=== PATIENT | female | born 1995 | race Two or more races ===

== ENCOUNTER 2025-02-09 12:21 | Observation (INO) | payer MEDICAID, SELFPAY ==
--- NOTE | 2025-02-04 13:10 | ESHP_ITS ---
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 It is getting bigger. The patient had that drained before elsewhere and it has filled up again. PAST SURGICAL HISTORY: Two C-sections. SOCIAL HISTORY: She has two children. ALLERGIES: NONE KNOWN. PAST MEDICAL HISTORY: No history of diabetes mellitus. No history of hypertension. PHYSICAL EXAMINATION: HEENT: Normal. NECK: Supple. LUNGS: Clear. CARDIOVASCULAR: Heart sounds are normal. ABDOMEN: Soft without any organomegaly. No guarding. No rigidity. EXTREMITIES: Normal. GENITOURINARY: Pelvic examination revealed large swelling over the urethra, which is urethral diverticulum 2-3 cm in size. Bladder itself, there are no stones or tumors. PLAN: Excision of the urethral diverticulum and cystoscopy. Planned procedure risks and complications have been discussed with the patient. The patient has understood them and agreed to proceed. DT: 11:59:15 TT: 13:09:00 Ref: [id number] - TID: [id number]
[2025-02-08 06:45] VITALS: BMI 35.7
[2025-02-08 07:16] LABS: Collection Type, Urine Clean Catch
[2025-02-08 07:34] LABS: Basophils # (Auto) 0.1 Thou/mm3 (0.0-0.2); Basophils % (Auto) 1 % (0-2.5); Eosinophils # (Auto) 0.1 Thou/mm3 (0.0-0.5); Eosinophils % (Auto) 1 % (0-10); Hematocrit 35.3 % (36.0-46.0); Hemoglobin 11.6 g/dL (12.0-16.0); Immature Granulocytes Auto 0.02 Thou/mm3 (0.00-0.00); Lymphocytes # (Auto) 3.6 Thou/mm3 (1.0-4.8); Lymphocytes % (Auto) 36 % (10-50); Mean Corpuscular HGB Conc 32.9 g/dl (31.0-37.0); Mean Corpuscular Hemoglobin 25.3 pg (25.0-35.0); Mean Corpuscular Volume 77 fL (80-100); Monocytes # (Auto) 0.6 Thou/mm3 (0.0-0.8); Monocytes % (Auto) 6 % (0-12); Neutrophils # (Auto) 5.6 Thou/mm3 (1.8-7.7); Neutrophils % (Auto) 57 % (37-80); Nucleated Red Blood Cell # 0.00 Thou/mm3 (0.00-0.00); Nucleated Red Blood Cell % 0 /100 WBC (0); Platelet Count 376 Thou/mm3 (140-440); RDW Standard Deviation 41.9 fL (36.4-46.3); Red Blood Count 4.58 Miln/mm3 (4.00-5.20); White Blood Count 10.0 Thou/mm3 (3.6-11.0)
[2025-02-08 07:47] LABS: Anion Gap 8 (7-16); BUN/Creatinine Ratio 24 Ratio (12-20); Blood Urea Nitrogen 12 mg/dL (9-23); Calcium 8.7 mg/dL (8.3-10.6); Carbon Dioxide 25.3 mMol/L (20.0-31.0); Chloride 107 mMol/L (98-107); Creatinine (Component) 0.5 mg/dL (0.6-1.3); Estimated Creatinine Clearance 166.6 mL/min (>60); Glucose 101 mg/dL (74-106); Osmolality,Calculated 279 (275-295); Potassium 3.8 mMol/L (3.4-5.1); Sodium 140 mMol/L (136-145); eGFR > 60 See Note
[2025-02-08 08:14] LABS: Bilirubin,Urine Negative (Negative); Blood,Urine Trace (Negative); Clarity,Urine Clear (Clear/Hazy); Color,Urine Lt-Yellow (Lt Yel-Yel); Glucose, Urine Negative (Negative); Ketones,Urine Negative (Negative); Leukocyte Esterase,Urine Positive (Negative); Nitrite,Urine Negative (Negative); PH,Urine 6.0 (5.0-7.0); Protein,Urine Trace (Neg - Trace); RBC,Urine 4 /hpf (0-3); Specific Gravity,Urine 1.033 (1.001-1.035); Squamous Epithelial Cell,Urine 4 /hpf (0-5); Urobilinogen,Urine Negative mg/dL (0.0-1.0); WBC,Urine 3 /hpf (0-5)
[2025-02-08 08:30] LABS: HCG Qualitative,Urine Negative
[2025-02-08 08:32] LABS: Sperm,Urine Present
[2025-02-09] VITALS (10 sets, daily range): BP systolic 104–136; BP diastolic 57–94; PULSE 55–89; RESP 12–99; TEMP 36.1–36.7; O2SAT 95–100; BMI 35.3; BMI 36.5
--- NOTE | 2025-02-09 11:53 | SUR.PHASEI ---
1150 patient arrived to recovery resting comfortably in bed, on oxygen 6L via oxy mask, breathing unlabored, vital signs stable, denies pain, dressing intact to vaginal area; peripad, vaginal packing in place; kerlix roll soaked in betadine, no bleeding noted, denies nausea, urinary catheter 16F in place with leg secure; draining to gravity, report received from Aby MICHEL and [place] MOLINA
--- NOTE | 2025-02-09 12:53 | SUR.PHASEII ---
1249 Report given to Sasha MICHEL, patient meets discharge criteria from recovery, resting comfortably in bed, arouses with verbal prompting, breathing unlabored, vital signs stable, denies pain, dressing intact; no bleeding noted, urinary catheter in place; draining to gravity, denies nausea 1253 Patient transported via bed to room 370 without incident, Sasha MICHEL and CONSTRUCTION EQUIPMENT [employer]CH[employer]IC promptly in patients room, patient comfortably in bed with call light in reach when this health technical writer left patients room
[2025-02-09] MEDS: DEXTROSE 5%-LACTATED RINGERS 1,000 ML 100 ML IV (13:40)
[2025-02-09] MEDS: HYDROcodone/APAP 5/325 TABLET 1 TAB PO (15:34)
--- NOTE | 2025-02-09 18:41 | ESOP_ITS ---
RE: JOSE ESQUIVEL : 1995 DATE OF OPERATION: 02/09/2025 PREOPERATIVE DIAGNOSIS: Large urethral diverticulum. POSTOPERATIVE DIAGNOSIS: Large urethral diverticulum. PROCEDURE PERFORMED: Excision of urethral diverticulum with cystourethroscopy. ANESTHESIA: General by [place]. INDICATION: The patient is a 29-year-old female, who was referred to co with history of large urethral diverticulum. The patient has large swelling in front of her urethra. This is about 3-4 cm in size. The patient had aspiration of this swelling done in [place], but it has recurred. She was sent to co. She is now scheduled to have excision of urethral diverticulum with cystoscopy. Planned procedure, risks, and complications have been discussed with patient. The patient understood them and agreed to proceed. DESCRIPTION OF PROCEDURE: After the patient was brought to the operating table under adequate general anesthesia in dorsal lithotomy position, parts were prepped and draped in the usual fashion. A 16-Syriac Moreira catheter was then inserted into the bladder and was left indwelling. Anterior vaginal wall incision was made into the fashion of the inverted U incision over this large urethral diverticulum. The flap of the anterior vaginal wall mucosa was created from the inverted U-shaped fashion after the flap was created with the base downwards. I incised over these large diverticular cystic structure and made another plane between the actual diverticulum and the vaginal mucosa. Now, the diverticulum was seen very well, which is all filled with clear fluid. I opened diverticulum and it contained large amount of liquid about 20-30 mL. I dissected the diverticulum and excised it. At the neck of the diverticulum, it was going towards the urethra. That opening towards the urethra was closed with continuous 3-0 chromic gut sutures. The second layer was closed with also 3-0 chromic catgut sutures in a horizontal manner and the third layer was the actual anterior vaginal wall mucosa, which was opened in an inverted U-shaped fashion, so 3-layer closure was carried out. Cystourethroscopy was done and there was no evidence of any leakage from the bladder towards the suture line. I could not see any opening inside the bladder of any urethral diverticulum. The bladder itself appeared normal without any stones or tumors. Ureteral orifices were found to be normal in position and appearance. Scope was withdrawn. A 16-Syriac Moreira catheter was placed back into the bladder. Vaginal packing was done with Kerlix soaked in Betadine solution. Moreira catheter was left in. The procedure was then terminated. The patient tolerated the entire procedure well and left the room in good condition. A sponge count and needle count at the end of the procedure was found to be correct. Estimated blood loss was approximately 25 mL. DT: 12:08:22 TT: 18:39:00 Ref: [id number] - TID: [id number]
[2025-02-10] VITALS: BP 107/64; PULSE 63; RESP 18; TEMP 36.2; O2SAT 98
[2025-02-10] MEDS: DEXTROSE 5%-LACTATED RINGERS 1,000 ML 100 ML IV (00:15)
[2025-02-10 04:00] VITALS: BP 110/67; PULSE 67; RESP 18; TEMP 36.3; O2SAT 98
[2025-02-10 06:36] LABS: Basophils # (Auto) 0.0 Thou/mm3 (0.0-0.2); Basophils % (Auto) 0 % (0-2.5); Eosinophils # (Auto) 0.0 Thou/mm3 (0.0-0.5); Eosinophils % (Auto) 0 % (0-10); Hematocrit 32.6 % (36.0-46.0); Hemoglobin 10.7 g/dL (12.0-16.0); Immature Granulocytes Auto 0.02 Thou/mm3 (0.00-0.00); Lymphocytes # (Auto) 2.8 Thou/mm3 (1.0-4.8); Lymphocytes % (Auto) 32 % (10-50); Mean Corpuscular HGB Conc 32.8 g/dl (31.0-37.0); Mean Corpuscular Hemoglobin 25.2 pg (25.0-35.0); Mean Corpuscular Volume 77 fL (80-100); Monocytes # (Auto) 0.5 Thou/mm3 (0.0-0.8); Monocytes % (Auto) 5 % (0-12); Neutrophils # (Auto) 5.5 Thou/mm3 (1.8-7.7); Neutrophils % (Auto) 62 % (37-80); Nucleated Red Blood Cell # 0.00 Thou/mm3 (0.00-0.00); Nucleated Red Blood Cell % 0 /100 WBC (0); Platelet Count 341 Thou/mm3 (140-440); RDW Standard Deviation 42.5 fL (36.4-46.3); Red Blood Count 4.24 Miln/mm3 (4.00-5.20); White Blood Count 8.8 Thou/mm3 (3.6-11.0)
[2025-02-10 06:57] LABS: Albumin, Serum 3.8 gm/dL (3.5-5.0); Anion Gap 10 (7-16); BUN/Creatinine Ratio 10 Ratio (12-20); Blood Urea Nitrogen < 5 mg/dL (9-23); Calcium 8.4 mg/dL (8.3-10.6); Calcium (Corrected) 8.6 mg/dL (8.5-10.1); Carbon Dioxide 22.9 mMol/L (20.0-31.0); Chloride 108 mMol/L (98-107); Creatinine (Component) 0.5 mg/dL (0.6-1.3); Estimated Creatinine Clearance 161.9 mL/min (>60); Glucose 109 mg/dL (74-106); Osmolality,Calculated 279 (275-295); Phosphorous 2.7 mg/dL (2.4-5.1); Potassium 3.9 mMol/L (3.4-5.1); Sodium 141 mMol/L (136-145); eGFR > 60 See Note
[2025-02-10 08:00] VITALS: BP 110/67; PULSE 84; RESP 17; TEMP 36.4; O2SAT 98
[2025-02-10] MEDS: LEVOFLOXACIN/D5W 500 MG IVPB 500 MG/100 ML BAG 100 MG IV (08:54)
[2025-02-10 12:00] VITALS: BP 95/63; PULSE 69; RESP 18; TEMP 36.6; O2SAT 95
== END 2025-02-10 14:05 | disposition home or self-care (01) ==
LOC: S3SX 02-10 07:49
PROVIDERS: Anesthesiology; Admitting Provider Surgery; PCP Family Medicine; Referring Provider Surgery; Visit Provider Surgery
PROC: 0TJB8ZZ Inspection of Bladder, Via Natural or Artificial Opening Endoscopic (ICD-10-PCS; CPT 52000; principal; 2025-02-09 10:15)
PROC: 0TBB8ZZ Excision of Bladder, Via Natural or Artificial Opening Endoscopic (ICD-10-PCS; CPT 52224; 2025-02-09 10:15)
DX: N36.1 Urethral diverticulum (principal)
CPT/HCPCS: 53230; 36415; 80048; 80069; 81001; 81025; 85025; 87086; 96360; 96361; A4217; A4649; G0378; J0131; J0694; J1956; J2250; J2704; J3010; J3490; J7121; A9270; J0665